=== PATIENT | female | born 1990 | race African-American/Black ===

== ENCOUNTER → 2024-11-05 | Day surgery (SDC) | payer OTHER ==
[2024-10-29 07:42] LABS: BASO % 0.4 % (0.1-1.2); EOS # 0.12 (0.04-0.54); EOS % 2.6 % (0.7-7.0); LYMPH # 1.95 (1.18-3.74); LYMPH % 43.0 % (19.3-53.1); MEAN PLATELET VOLUME 10.10 fl (9.4-12.4); MONO # 0.30 (0.24-0.82); MONO % 6.6 % (4.7-12.5); NEUT # 2.13 (1.56-6.13); NEUT % 47.2 % (34.0-71.1); RED CELL DISTRIBUTION WIDTH 13.9 % (11.6-14.4)
[2024-10-29 07:43] LABS: URINE APPEARANCE Clear; URINE BILIRRUBIN Negative (NEGATIVE); URINE BLOOD Negative; URINE COLOR Yellow; URINE GLUCOSE Negative (NEGATIVE); URINE KETONE Negative (NEGATIVE); URINE LEUKOCYTE Negative; URINE NITRATE Negative; URINE PROTEIN Negative (NEGATIVE); URINE UROBILINOGEN 1.0 E.U./dl
[2024-10-29 07:48] LABS: URINE BACTERIA 10.7 uL (0.0-1933); URINE EPITHELIAL CELLS 7.0 uL (0.0-38.8); URINE RBC 13.7 uL (0.0-20.8); URINE WBC 12.5 uL (0.0-23.2)
[2024-10-29 07:54] LABS: URINE CAST 0.14 uL (0.0-1.40)
[2024-10-29 07:55] VITALS: BP 142/78
[2024-10-29 08:16] LABS: INR 0.94
[2024-10-29 08:32] LABS: ALT/SGPT 32.0 U/L (12-78); AST/SGOT 20.0 U/L (15-37); BILIRUBIN TOTAL 0.93 mg/dL (0.3-1.2); BUN CREA RATIO 29.0 (7.0-25.0); CREATININE SERUM 0.49 mg/dL (0.55-1.02); GFR 145.44; GLOBULINA 3.8 G/DL (2.4-3.5); GLUCOSE FASTING 88.0 mg/dL (65-100); OSMOLALITY SERUM 279.0 MOSM/KG (275-295)
[~2024-11-05] VITALS: Ht 160 cm; Wt 99.8 kg
[~2024-11-05] MED LIST: AMOX-CLAV 875-1 EACH PO; CEFAZOLIN SODIUM 1,000 MG VIAL ONE; HORIZANT300 MG; MELOXICAM15 MG; MORPHINE SULFATE 4 MG/ML VIAL IV ONE; NAPROXEN500 MG PO; ONDANSETRON HCL 2 MG/ML VIAL ONE; POVIDONE-IODINE 118 ML BOTT TOP ONE; SUGAMMADEX SODIUM 200 MG/2 ML VIAL IV ONE; TRAM1TAB98 PO
== END | disposition home or self-care (01) ==
LOC: ADM 10-29 07:15 → CIR.AMB 07:00
PROVIDERS: ATTEND Obstetrics & Gynecology
DX: D27.1 Benign neoplasm of left ovary (principal); R10.2 Pelvic and perineal pain